=== PATIENT | female | born 1990 | race Two or more races ===

== ENCOUNTER 2016-07-18 13:24 | Emergency (ER) | payer MEDICAID ==
[2016-07-18 14:22] LABS: URINE BILIRUBIN NEGATIVE (NEGATIVE); URINE BLOOD NEGATIVE (NEGATIVE); URINE GLUCOSE (UA) NEGATIVE (NEGATIVE); URINE LEUKOCYTE ESTERASE NEGATIVE (NEGATIVE); URINE NITRITE NEGATIVE (NEGATIVE); URINE PROTEIN NEGATIVE (NEGATIVE); URINE UROBILINOGEN NORMAL (0-1 mg/dl)
[2016-07-18 14:25] LABS: HCG,QUALITATIVE URINE POSITIVE
[2016-07-18 14:27] LABS: URINE APPEARANCE CLEAR; URINE COLOR YELLOW
[2016-07-18 15:57] LABS: ABSOLUTE NEUTROPHIL COUNT 5.9 K/mm3 (1.8-7.7); BASO % 0.5 % (0.2-1.0); EOS # 0.1 (0.0-0.5); EOS % 0.9 % (0.9-2.9); HEMATOCRIT 37.9 % (37.0-47.0); IMM NEUT% 0.2 % (0-1); LYMPH # 1.7 (1.0-4.8); LYMPH % 20.4 % (15-45); MEAN CELL VOLUME 82.9 fl (81.0-99.0); MEAN CORPUSCULAR HEMOGLOBIN 26.3 pg (27.0-31.0); MEAN CORPUSCULAR HGB CONC 31.7 g/dl (33.0-37.0); MEAN PLATELET VOLUME 10.2 fl (7.4-10.4); MONO # 0.5 (0.0-0.8); MONO % 6.3 % (4-12); NEUT % 71.7 % (43-75); PLATELET COUNT 383 K/mm3 (130-400); RED CELL DISTRIBUTION WIDTH 15.3 % (11.5-14.5)
[2016-07-18 16:14] LABS: ALB/GLOB RATIO 1.3 (>1.0); ALBUMIN 4.1 gm/dL (3.5-5.7)
--- NOTE | 2016-07-18 17:07 | US ---
OB COMP <14 WKS, OB TRANSVAGINAL CLINICAL HISTORY: LMP 06/09/2016. MGA 5 weeks 4 days. EDC 03/16/2017. . Midline to left lower quadrant pain for 3 days. Positive qualitative beta-hCG. COMPARISON: None TECHNIQUE: Transabdominal and transvaginal. FINDINGS: Uterus: Single intrauterine gestation. Gestational sac size and shape: Normal size and shape. Mean sac diameter: 1.85 cm = 6 weeks 2 days. [place] rump length: 0.16 cm = weeks days. Estimated date of confinement: 03/11/2017 Embryo: Yes Yolks sac: Yes heart tones: Yes 90 Beats per minute Placenta: Too early to comment. Previa: Too early comment. Charla-gestational bleed: No bleed on the left, 1.7 x 0.5 x 2.3 cm. Right ovary: 3.3 x 2.3 x 3.7 cm. Normal blood flow. 2.7 cm x 2.2 cm x 2.9 cm complex nodule. Complex free fluid in the right adnexa. Left ovary: 2.3 x 1.5 x 2.1 cm. Normal blood flow. Impression: 1. Live intrauterine gestation, 5 weeks 4 days. Left-sided. Gestational bleed. 2. 2.9 cm complex nodule of the right ovary with mild amount of complex free fluid. A ruptured cyst is suspected. The report was sent to the emergency department electronic medical record system, 07/18/2016 at 17:08
[2016-07-20 15:44] LABS: CHLAMYDIA BD Negative (Negative); N.GONORRHOEAE BD Negative (Negative); SOURCE Urine (())
== END 2016-07-18 18:28 | disposition home or self-care (01) ==
LOC: ED 13:24
DX: O26.891 Other specified pregnancy related conditions, first trimester (principal); R10.30 Lower abdominal pain, unspecified; Z3A.01 Less than 8 weeks gestation of pregnancy